=== PATIENT | male | born 1940 | race Caucasian/White ===

== ENCOUNTER 2023-01-27 18:25 | Emergency (ER) | payer MEDICARE ==
[~2023-01-27] VITALS: Ht 182.9 cm; Wt 113.0 kg
[2023-01-27 18:35] VITALS: BP 105/56; RESP 16; TEMP 98; O2SAT 95
[2023-01-28] VITALS: PULSE 98
== END 2023-01-28 00:10 | disposition home or self-care (01) ==
LOC: ER 19:42
DX: R51.9 Headache, unspecified (principal); E11.9 Type 2 diabetes mellitus without complications; I10 Essential (primary) hypertension
CPT/HCPCS: 99284